=== PATIENT | female | born 1965 | race Caucasian/White ===

== ENCOUNTER 2018-07-08 08:45 | Day surgery (SDC) | payer OTHER ==
[~2018-07-08] VITALS: Ht 154.9 cm; Wt 90.7 kg
[~2018-07-08 08:45] MED LIST: COMPLEX B-1001 EACH PO; DILANTIN100 MG PO; FISH OIL 1,0001 EAC7 PO; HYDROCHLOROTHIA25 MG PO; NAPROSYN500 MG PO; ONE DAILY WOME1 EACH PO; PHENOBARBITAL64.8 MG PO; TIROSINT75 MCG PO; VITAMIN C1000 MG PO
[2018-07-08 09:20] VITALS: BP 106/53
[2018-07-08] MEDS ORDERED: MOTRIN800 MG PO (12:06)
[2018-07-08] MEDS ORDERED: NORCO 5/3251 TABLET PO (12:06)
[2018-07-08 12:50] VITALS: BP 115/58
[2018-07-08 13:51] VITALS: BP 113/57
== END 2018-07-08 13:54 | disposition home or self-care (01) ==
LOC: SDC 08:45
PROC: 0UDB7ZX Extraction of Endometrium, Via Natural or Artificial Opening, Diagnostic (ICD-10-PCS; principal; 2018-07-08)
PROC: 0UBC7ZX Excision of Cervix, Via Natural or Artificial Opening, Diagnostic (ICD-10-PCS; principal; 2018-07-08)
DX: R87.810 Cervical high risk human papillomavirus (HPV) DNA test positive (principal); E66.9 Obesity, unspecified; Z68.41 Body mass index [BMI] 40.0-44.9, adult; E03.9 Hypothyroidism, unspecified; E78.5 Hyperlipidemia, unspecified; F41.9 Anxiety disorder, unspecified; G40.909 Epilepsy, unspecified, not intractable, without status epilepticus; M19.90 Unspecified osteoarthritis, unspecified site
CPT/HCPCS: 88307; 93005; J1170; J1885; J3010